=== PATIENT | female | born 1975 | race Caucasian/White ===

== ENCOUNTER → 2021-05-19 11:03 | Outpatient (CLI) | payer OTHER, SELFPAY ==
[2021-05-19 13:11] LABS: COVID19 -Nasal RAPID Negative (Negative)
== END ==
PROVIDERS: Visit Provider Family Medicine Sleep Medicine
DX: Z20.822 Contact with and (suspected) exposure to COVID-19 (principal)
CPT/HCPCS: 87635; C9803

== ENCOUNTER 2021-05-21 10:43 | Day surgery (SDC) | payer OTHER, SELFPAY ==
[2021-05-21] VITALS (8 sets, daily range): BP systolic 91–125; BP diastolic 53–81; PULSE 57–68; RESP 10–16; TEMP 36.3–36.4; O2SAT 100; BMI 21.9
--- NOTE | 2021-05-21 | PATH_ITS ---
[facility] Accession Number: [id number] . 01 Material submitted: . PART A: small bowel - SMALL BOWEL BIOPSIES PART B: gastrointestinal site - GASTRIC BIOPSIES . 01 Clinical history: . A: R/O CELIAC SPRUE B: R/O H.PYLORI . 02 Diagnosis: A. Small Bowel Biopsies: Duodenal mucosa with no diagnostic abnormality. Negative for active inflammation, features of sprue, dysplasia, or malignancy. . B. Gastric Biopsies: Portions of gastric antral and body-type mucosa with mild chronic inflammation. Negative for Helicobacter organisms by immunohistochemistry. Negative for intestinal metaplasia. Negative for dysplasia or malignancy. MRV 05/26/2021 1312 Local . 02 Electronically signed: . Odalys Tracy MD, Pathologist NPI- [id number] . 01 Gross description: . Part A: SMALL BOWEL BIOPSIES: Received in formalin are 3 fragment(s) of castro, soft tissue measuring 0.5 x 0.1 x 0.1 cm to 0.2 x 0.1 x 0.1 cm submitted entirely in 1 cassette(s) Part B: GASTRIC BIOPSIES: Received in formalin are 3 fragment(s) of castro, soft tissue measuring 0.2 x 0.1 x 0.1 cm to 0.1 x 0.1 x 0.1 cm submitted entirely in 1 cassette(s) /CPE 05/22/2021 1654 Local . 02 Microscopic: . B. An immunohistochemical stain was performed to evaluate for Helicobacter organisms and is negative. The control stain showed appropriate reactivity. . * This test was developed and its performance characteristics determined by [employer]. It has not been cleared or approved by the [place]. Food and Drug Administration. The FDA has determined that such clearance or approval is not necessary. This test is used for clinical purposes. It should not be regarded as investigational or for research. . 02 Pathologist provided ICD-10: K29.70 . 02 CPT . 524932, 229020, M70947 Specimen Comment: A courtesy copy of this report has been sent to [phone] Performed at: 01 [facility] [address] [place] [address], [place], [place] [id number] MD Terrell Harrell MD Phone: [phone] Performed at: [address] [facility] [id number] MD Mallika Gutierrez MD Phone: [phone]
[2021-05-21] MEDS: SODIUM CHLORIDE 0.9% 1,000 ML 70 ML IV (11:20)
--- NOTE | 2021-05-21 11:41 | P.HP_ITS ---
History of Present Illness History of Present Illness Date Patient Seen: 05/21/21 Time Patient Seen: 11:35 Chief complaint: DX COLONOSCOPY/EGD Narrative: Patient is a very pleasant 45-year-old female who presented for further evaluation. She was last evaluated by video visit. She denies any changes to her symptoms of fatigue. She has continued to have intermittent episodes of nausea, upper abdominal pain, and occasional constipation. She is also due for screening colonoscopy for cancer screening. Patient History Medical History Anxiety Depression Dysmenorrhea Graves disease Hypothyroidism Surgical History History of colonoscopy History of esophagogastroduodenoscopy (EGD) Family & Social History Social History: household members family Tobacco & Substance use: Smoking Status Never smoker alcohol intake frequency holiday/special occasion Substance Use Type does not use Meds Home Medications and Allergies Home Medications Medication Instructions Recorded Confirmed Type cholecalciferol (vitamin D3) 50 50 mcg PO DAILY 05/20/21 05/21/21 History mcg (2,000 unit) capsule (Vitamin D3) levothyroxine 100 mcg tablet 100 mcg PO DAILY 05/20/21 05/21/21 History multivitamin 1 tab PO DAILY 05/20/21 05/21/21 History Allergies Allergy/AdvReac Type Severity Reaction Status Date / Time No Known Drug Allergies Allergy Verified 05/20/21 14:58 Review of Systems Review of Systems ROS: Yes All systems reviewed with the patient and are negative except as otherwise documented Exam Vital Signs (past 8 hours): - 05/21/21 11:00 Temperature 97.5 F L Pulse Rate 68 Respiratory Rate 16 Blood Pressure 125/80 Pulse Oximetry 100 Oxygen Delivery Method Room Air Const General: cooperative, healthy appearing, comfortable, well developed, well groomed and No acute distress [facility] Head: normocephalic and atraumatic Resp Effort & Inspection: normal respiratory effort, able to speak in complete sentences and no audible wheezes Auscultation: clear to auscultation bilaterally Cardio Rate: regular rate Rhythm: regular rhythm GI Palpation: soft and No tender Auscultation: normal bowel sounds Extrem General: no pedal edema Assessment & Plan Assessment & Plan narrative: 1. Abdominal pain 2. Nausea 3. Intermittent constipation 4. Colon cancer screening EGD and colonoscopy with further recommendations follow Time Spent With Patient Critical Care time: I spent a total of [] minutes of critical care time on this patient's care today; this time is exclusive of procedural time.
--- NOTE | 2021-05-21 12:10 | PM.OP.EC ---
Operative Date/Time/Diagnoses Date of procedure: 05/21/21 Time of procedure: 11:44 Procedure Notes Procedure in detail: Surgeon: Jemma Trujillo DO Procedure: Esophagogastroduodenoscopy with biopsy and colonoscopy Preoperative diagnosis: 1. Nausea 2. Upper abdominal pain 3. Intermittent constipation 4. Colon cancer screening Postoperative diagnosis: 1. Mild gastritis, biopsied to rule out H pylori 2. Normal-appearing small bowel, rule out celiac sprue 3. Normal-appearing colon mucosa the terminal ileum 4. Grade 1 internal hemorrhoids noted on retroflexion 5. Otherwise unremarkable EGD and colonoscopy Medications: Monitored anesthesia care, see Anesthesia note Preanesthesia Assessment An H and P was performed/updated and the Px?s ASA class is 1. The procedure was discussed in detail with the patient. The potential risks and complications including infection, bleeding, missed lesions, perforation, need for surgery in case of perforation, prolonged hospital stay, and were explained. A brief question and answer period was allotted and once all questions were answered, informed consent was obtained. The patient was brought back to the procedure room and placed on standard monitoring. The patient?s vital signs were monitored continuously throughout the entire procedure. Prior to starting, a timeout was performed to confirm the patient?s identity, allergies, medications, and procedure. Procedure in detail The patient was placed in left lateral decubitus position and a bite block was inserted. The tip of the upper endoscope was placed into the mouth and advanced without difficulty under direct visualization into the esophagus. Esophagus: Normal appearing esophagus, Z-line regular at 39 cm Stomach: Mild gastritis in the antrum, biopsy to rule out H pylori Duodenum: Normal-appearing duodenum, biopsies were obtained to rule out celiac sprue After the upper endoscopy, preparations were made for the colonoscopy. Once adequate sedation was obtained a JUNO was performed. The digital rectal examination did not reveal any palpable lesions. The tip of the colonoscope was placed in the anal canal and advanced with some mild difficulty all the way to the terminal ileum, aided by manual pressure. The cecum which was identified by the appendiceal orifice and the ileocecal valve. Colon mucosa was unremarkable. Grade 1 internal hemorrhoids were noted on retroflexion. The patient tolerated the procedure well and will be brought back to the recovery area to be discharged once criteria are met. The prep was judged to be good/excellent and adequate to identify polyps less than 5 mm. The withdrawal time was 8min. Complications There were no complications and estimated blood loss was minimal. Recommendations Resume previous diet Continue outpatient medications Follow-up pathology results Repeat colonoscopy in 10 years for screening Follow-up as previously recommended An emergency contact number was given to the patient for any complications related to the procedure
== END 2021-05-21 13:25 | disposition home or self-care (01) ==
LOC: ENDO 10:44
PROVIDERS: PCP Registered Nurse; Referring Provider Student in an Organized Health Care Education/Training Program; Visit Provider Student in an Organized Health Care Education/Training Program
PROC: 0DJ08ZZ Inspection of Upper Intestinal Tract, Via Natural or Artificial Opening Endoscopic (ICD-10-PCS; CPT 43235; principal; 2021-05-21 12:30)
PROC: 0DJD8ZZ Inspection of Lower Intestinal Tract, Via Natural or Artificial Opening Endoscopic (ICD-10-PCS; CPT 45378; 2021-05-21 12:30)
DX: K29.50 Unspecified chronic gastritis without bleeding (principal); K59.00 Constipation, unspecified; E03.9 Hypothyroidism, unspecified; K64.0 First degree hemorrhoids
CPT/HCPCS: 43239; 45378; 81025; J2704